=== PATIENT | male | born 1955 | race Caucasian/White ===

== ENCOUNTER 2019-04-22 05:05 | Day surgery (SDC) ==
[2019-04-16 10:32] LABS: HEMATOCRIT 47.7 % (42.0-52.0); HEMOGLOBIN 15.4 g/dL (14.0-18.0); MCH 28.1 PG (27-31); MCHC 32.3 g/dL (33-37); MPV 9.6 FL (7.4-10.4); RBC 5.48 XMIL (4.7-6.1); RDW 14.9 % (11.5-14.5); WBC 5.3 X1000 (4.8-10.8)
[2019-04-16 10:45] LABS: INR 0.99; PROTIME 13.2 Seconds (11.0-16.0); PTT 26.8 Seconds (22.3-41.8)
[2019-04-16 11:49] LABS: AGAP 18; BUN 15 mg/dL (8-22); CALCIUM 10.6 mg/dL (8.8-10.2); CHLORIDE 99 mmol/L (98-107); COSMO 278; CREATININE 0.9 mg/dL (0.7-1.2); ESTIMATED GFR > 60; GLUCOSE 129 mg/dL (70-104); POTASSIUM 4.5 mmol/L (3.5-5.1); SODIUM 138 mmol/L (136-145); TCO2 21 mmol/L (25-35)
--- NOTE | 2019-04-21 17:57 | HISTORY AND PHYSICAL ---
HISTORY OF PRESENT ILLNESS: A 63-year-old male with longstanding history of BPH and intermittent gross hematuria. He has undergone GreenLight transurethral vaporization of the prostate approximately 10 years ago. He reports having hematuria shortly after vaporization. He has been on finasteride for a number of years. He has hesitancy, incomplete emptying, and nocturia. He had elevated postvoid residual and a very large prostate gland on physical examination. He underwent cystoscopy on 03/02/2019, which revealed significant prostatic hypertrophy with minimal TUR defect of the bladder neck. We discussed that he likely has his hematuria because of the significant large prostate. He cannot stop finasteride or hematuria recurs. He was counseled on repeat GreenLight versus standard TURP versus simple prostatectomy and wants to proceed with the latter. PAST MEDICAL HISTORY: Arthritis, BPH, erectile dysfunction, coronary artery disease, hyperlipidemia. PAST SURGICAL HISTORY: Percutaneous coronary intervention, endoscopic kidney stone removal, hernia repair, GreenLight transurethral vaporization of prostate, carpal tunnel release. MEDICATIONS: Amlodipine, insulin, finasteride, Flomax, glimepiride, lisinopril, lovastatin, metformin, metoprolol, sildenafil. ALLERGIES: No known drug allergies. FAMILY HISTORY: Positive for hyperlipidemia, coronary disease, and diabetes. SOCIAL HISTORY: Former smoker, denies alcohol or illicit drug use. PHYSICAL EXAMINATION: GENERAL: No acute distress. HEENT: Normocephalic, atraumatic. CARDIOVASCULAR: Regular rhythm. ABDOMEN: Protuberant, nontender to palpation. Soft. GENITOURINARY: Normal external male genitalia. ASSESSMENT: A 63-year-old male with a very, very large prostate and intermittent gross hematuria who has failed finasteride and Flomax. He has symptoms with hesitancy and weak stream. He desires robotic-assisted laparoscopic simple prostatectomy. We discussed the risks of the procedure including, but not limited to, bleeding, infection, injury to adjacent structures, small risk of mcfp urinary incontinence, small risk of mcfp erectile dysfunction, glucose and syrup weigher complications, such as scarring and need for additional interventions, were explained. He was also educated on retrograde ejaculation as a permanent side effect. He voiced understanding and wants to proceed. PLAN: Robotic-assisted laparoscopic simple prostatectomy. cc: Mauricio Harris MD
[2019-04-22] MEDS ORDERED: LR 1,000 ML ONE ×2 (05:36→06:29)
[2019-04-22] MEDS ORDERED: KEFZOL 1 GM/D5W 2 GM/100 ML IVPB ONE (05:36)
[2019-04-22] MEDS ORDERED: FENTANYL ONE (06:19)
[2019-04-22] MEDS ORDERED: DIPRIVAN 1% ONE (06:19)
[2019-04-22] MEDS ORDERED: VERSED ONE (06:19)
[2019-04-22] MEDS ORDERED: XYLOCAINE-MPF 2% ONE (06:24)
[2019-04-22] MEDS ORDERED: ZEMURON ONE ×3 (06:24→07:29)
[2019-04-22] MEDS ORDERED: ROBINUL ONE (06:24)
[2019-04-22] MEDS ORDERED: SENSORCAINE-MPF 0.5%/EPI 1:200,000 ONE (06:29)
[2019-04-22] MEDS ORDERED: B & O 16A SUPP ONE (06:29)
[2019-04-22] MEDS ORDERED: OFIRMEV 1000 MG/ISOTONIC SOLN 1,000 MG/100 ML BOTTLE ONE (07:26)
[2019-04-22] MEDS ORDERED: ZOFRAN ONE (07:40)
[2019-04-22] MEDS ORDERED: DECADRON ONE (07:40)
[2019-04-22 07:45] LABS: URINE SOURCE CATH
[2019-04-22 07:53] LABS: BILIRUBIN URINE NEGATIVE (NEGATIVE); BLOOD URINE LARGE (NEGATIVE); COLOR YELLOW; GLUCOSE URINE >1000 mg/dL (NEGATIVE); KETONE URINE TRACE mg/dL (NEGATIVE); LEUKOCYTES URINE LARGE (NEGATIVE); NITRITE URINE NEGATIVE (NEGATIVE); PROTEIN URINE 30 mg/dL (NEGATIVE); SP GRAVITY URINE 1.031; TURBIDITY URINE TURBID (CLEAR); UROBILINOGEN URINE NORMAL (NORMAL)
[2019-04-22 07:55] LABS: UR EPITHELIAL CELLS <10 /HPF (<10); URINE BACTERIA NEGATIVE /HPF; URINE RBC TNTC /HPF (<10); URINE WBC TNTC /HPF (<10)
[2019-04-22] MEDS ORDERED: NORCURON ONE (08:11)
[2019-04-22] MEDS ORDERED: NEOSTIGMINE ONE (08:30)
[2019-04-22] MEDS: DILAUDID ONE ×4 (09:39→10:00)
[2019-04-22] MEDS ORDERED: NS 1,000 ML ONE (09:39)
[2019-04-22] MEDS ORDERED: DITROPAN ONE (09:39)
[2019-04-22] MEDS ORDERED: MORPHINE IV PRN (09:44)
[2019-04-22] MEDS ORDERED: DILAUDID IV PRN (09:45)
[2019-04-22] MEDS ORDERED: NORCO-5 PO PRN (09:45)
[2019-04-22] MEDS ORDERED: LABETALOL IV PRN (09:45)
[2019-04-22] MEDS ORDERED: BENADRYL IV PRN (09:45)
[2019-04-22] MEDS ORDERED: PHENERGAN PO PRN (09:45)
[2019-04-22] MEDS ORDERED: PHENERGAN PR PRN (09:45)
[2019-04-22] MEDS ORDERED: ZOFRAN IV PRN (09:45)
[2019-04-22] MEDS ORDERED: NORCO-7.5 PO PRN (09:45)
[2019-04-22] MEDS ORDERED: BENADRYL LIQUID PO PRN (09:45)
[2019-04-22] MEDS ORDERED: SODIUM CHLORIDE 0.9% INJ PRN (09:45)
[2019-04-22] MEDS ORDERED: PHENERGAN IV PRN (09:45)
[2019-04-22] MEDS ORDERED: NORCO-10 ONE (10:19)
[2019-04-22] MEDS: NS 1,000 ML IV SCH ×2 (11:00→22:45)
[2019-04-22] MEDS ORDERED: OFIRMEV 1000 MG/ISOTONIC SOLN 1,000 MG/100 ML BOTTLE IV PRN (14:00)
[2019-04-22] MEDS: NORCO-10 PO PRN (14:50)
[2019-04-22] MEDS: KEFZOL 2 GM/D5W 2 GM/50 ML IVPB IV SCH ×2 (14:50→22:04)
[2019-04-22] MEDS ORDERED: KEFZOL 2 GM/D5W 2 GM/50 ML IVPB IV SCH ×2 (15:00)
[2019-04-22] MEDS: DITROPAN PO PRN (18:50)
[2019-04-22] MEDS: COLACE PO SCH ×2 (19:47→22:04)
[2019-04-22] MEDS: PERIDEX MT SCH ×2 (19:48→22:04)
[2019-04-22] MEDS: MEVACOR PO SCH ×2 (19:48→22:05)
[2019-04-22] MEDS: PATIENT'S OWN MED PO SCH (22:05)
[2019-04-22] MEDS: GLUCOPHAGE PO SCH (22:06)
[2019-04-23] MEDS: NORCO-10 PO PRN (02:05)
[2019-04-23] MEDS: DITROPAN PO PRN (02:05)
[2019-04-23 05:02] LABS: CREATININE BODY FLUID 0.8 mg/dL
[2019-04-23 05:51] VITALS: BP 121/59
[2019-04-23] MEDS: KEFZOL 2 GM/D5W 2 GM/50 ML IVPB IV SCH (06:06)
[2019-04-23 06:36] LABS: HEMATOCRIT 42.5 % (42.0-52.0); HEMOGLOBIN 13.4 g/dL (14.0-18.0); MCH 27.7 PG (27-31); MCHC 31.5 g/dL (33-37); RBC 4.83 XMIL (4.7-6.1); RDW 14.8 % (11.5-14.5); WBC 6.54 X1000 (4.8-10.8)
[2019-04-23 07:23] LABS: AGAP 12; BUN 13 mg/dL (8-22); CALCIUM 8.1 mg/dL (8.8-10.2); CHLORIDE 101 mmol/L (98-107); COSMO 278; CREATININE 0.8 mg/dL (0.7-1.2); ESTIMATED GFR > 60; GLUCOSE 167 mg/dL (70-104); POTASSIUM 4.5 mmol/L (3.5-5.1); SODIUM 137 mmol/L (136-145); TCO2 24 mmol/L (25-35)
[2019-04-23] MEDS ORDERED: MAGNESIUM GLUCONATE PO SCH (09:00)
[2019-04-23] MEDS ORDERED: NON-FORMULARY MED PO SCH (09:00)
[2019-04-23] MEDS ORDERED: VITAMIN D PO SCH (09:00)
[2019-04-23] MEDS ORDERED: VICON-C PO SCH (09:00)
[2019-04-23] MEDS ORDERED: VITAMIN C PO SCH (09:00)
[2019-04-23] MEDS ORDERED: PATIENT'S OWN MED PO SCH (09:00)
[2019-04-23] MEDS ORDERED: CENTRUM TABLET PO SCH (09:00)
[2019-04-23] MEDS: COLACE PO SCH (09:10)
[2019-04-23] MEDS: LOPRESSOR PO SCH ×2 (09:10→09:25)
[2019-04-23] MEDS: GLUCOPHAGE PO SCH (09:10)
[2019-04-23] MEDS: PRINIVIL PO SCH ×2 (09:12→09:25)
[2019-04-23] MEDS: PERIDEX MT SCH (09:14)
[2019-04-23] MEDS: NORVASC PO SCH ×2 (09:14→09:51)
[2019-04-23] MEDS: METAMUCIL POWDER PACKET PO SCH ×2 (09:14→09:26)
[2019-04-23] MEDS: PATIENT'S OWN MED PO SCH (09:16)
--- NOTE | 2019-04-23 11:35 | PROGRESS NOTE ---
DATE: 04/23/2019 SUBJECTIVE: Mr. tSarr reports a good night overnight. He denies significant pain. He has been on continuous irrigation, but it has barely been dripping. He has not had to be irrigated for clot retention. OBJECTIVE: Vital Signs: Temperature 97.7 degrees, pulse 72, blood pressure 121/59. His urine output was recorded, approximately 2 liters. His Wes drain put out 60 mL. General: On physical examination, no acute distress. Abdomen: Soft, nontender, and nondistended. Incisions are clean, dry, and intact. Wes drain has serosanguineous fluid. PERTINENT LABS: Hematocrit 42.5. Creatinine 0.8, NATA creatinine 0.8. ASSESSMENT AND PLAN: A 63-year-old male postoperative day 1, status post laparoscopic lysis of adhesions and robotic-assisted laparoscopic simple prostatectomy who is doing well. His Wes drain will be removed. I educated him on postoperative care. PLAN: 1. Remove NATA drain. 2. Discharge home with Leach catheter. 3. He will go home with prescriptions for [place] 7.5, Ditropan, and Bactrim. 4. I am planning on seeing him the next day for Leach removal. cc: Mauricio Harris MD
--- NOTE | 2019-04-23 15:07 | OPERATIVE NOTE ---
PROCEDURE DATE: 04/22/2019 SURGEON: Dr. Mauricio Harris. PREOPERATIVE DIAGNOSES: 1. Benign prostatic hypertrophy 2. Gross hematuria. 3. History of open abdominal surgery. PROCEDURE: 1. Laparoscopic lysis of adhesions. 2. Robotic-assisted laparoscopic simple prostatectomy. INDICATIONS: A 63-year-old male with long-standing history of BPH who has a very, very large prostate gland. He has failed a GreenLight TUVP that was done approximately 10 years ago. He has had intermittent gross hematuria. He has obstructive symptoms. He had cystoscopy which confirmed a very large gland and presents for intervention. He was counseled on repeated GreenLight TUVP versus standard TURP versus simple prostatectomy. Given the size of his prostate and the urologic failure, he wants to proceed with simple prostatectomy. FINDINGS: Very friable large prostate. Adequate hemostasis at the conclusion of the case. Watertight vesicostomy closure tested with 300 mL of fluid. PROCEDURE: After obtaining informed consent, patient was brought to the operating room. Perioperative antibiotics and general endotracheal and administered. He was placed in lithotomy position, prepped and draped in sterile fashion. An 18-Indonesian Leach catheter was introduced and the bladder was drained. We began by making a small stab incision in his umbilicus with a 15 blade and introduced Veress needle connected to saline-filled syringe. We confirmed positive drop test followed by aspiration of fluid in syringe without evidence of GI contents or blood. We then insufflated his pneumoperitoneal pressure to 15 mmHg. The trocar sites were marked out in a standard prostatectomy fashion. Next, 10 mL of 0.5% plain Marcaine were used for local anesthetic at the trocar sites. Bovie electrocautery was used to incise the skin. Supraumbilical 12 mm trocar was introduced followed by insertion of a robotic camera. Inspection revealed attachments of mesentery and small bowel to anterior abdominal wall. I placed one of the 8 mm trocars and then under direct vision, used scissors to take down the adhesions. Once the were lysed, I placed the rest of the trocars under direct vision. He was positioned in steep Trendelenburg position and the robot was docked. We began by incising lateral to each medial umbilical ligament and gained access to the space of Retzius. Once the bladder was dropped, I cleared off fat from the endopelvic fascia overlying the prostate until the bladder neck was seen. I cleared off some of the fat from the bladder. Once that was done, we made a transverse cystotomy incision approximately 8 cm. Examination of the bladder showed no evidence of lesions. He had fairly friable-appearing prostate gland with significant bilobar hypertrophy and mild protrusion of the median lobe. You really could not see where the previous transurethral vaporization was done. I was able to identify and gen bilateral ureteral orifices. I then used monopolar cautery and scored circumferentially the bladder mucosa. #2 Prolene suture was placed through the lobes of the prostate and put on traction with the fourth arm. Monopolar scissors were then used to make a subcapsular incision posteriorly and slowly adenoma was freed from the capsule circumferentially. I had Leach catheter placed into the bladder throughout the procedure and eventually distally Leach catheter was seen. The adenoma was removed and placed into EndoCatch bag. There appeared to be another lump of adenoma anteriorly which was removed using monopolar cautery and bipolar graspers. The wound was inspected for hemostasis and copiously irrigated. We did not appear to penetrate the capsule. I then used V-Loc suture to reapproximate the bladder neck and the lip of the urethra in a clockwise and counterclockwise fashion. The sutures were then cross tied outside of the prostatic capsule. Upon further examination, again hemostasis was excellent. The ureteral orifices appeared to be uninvolved. We then used 0 Vicryl V-Loc suture to close the bladder in a running fashion incorporating the mucosa and detrusor muscle. I then closed the second layer incorporating some of the detrusor muscle and the overlying fatty tissues in a Lambert fashion. Following that, a 22-Indonesian, 3-way Leach catheter was introduced with 30 mL instilled in the balloon. We irrigated the bladder by instilling 300 mL of sterile fluid and there was no evidence of leakage at the vesicostomy site. The bladder was then left to drainage. We introduced a drain via the fourth arm trocar and secured to the skin with 2-0 nylon suture. Pneumoperitoneum pressure was then decreased and we inspected the entire field, there was no evidence of active bleeding. Following that, the robot was undocked. The wounds were irrigated. Supraumbilical incision was extended, and the prostate was delivered with the EndoCatch bag. A 0 Vicryl suture was used to close the 12 mm paralegal assistant trocar and the fascia. PDS suture was used to close the supraumbilical fascia in a running fashion. The wounds were irrigated again and 4-0 Monocryl sutures were used for subcuticular closure. This was followed by application of Covidien agent. The Wes drain was placed to bulb suction and Leach catheter to gravity drainage as well as continuous bladder irrigation. He was extubated and taken to PACU for further recovery. ESTIMATED BLOOD LOSS: 100 mL. COMPLICATIONS: None. SPECIMENS: Prostate gland. DRAINS: 1. Wes drain. 2. 22-Indonesian, 3-way Leach catheter. DISPOSITION: To PACU and subsequently to the floor with Leach catheter to continuous bladder irrigation. cc: Mauricio Harris MD
[2019-04-24 08:06] LABS: BODY FLUID SOURCE JP DRAIN FLUID
== END 2019-04-23 11:30 | disposition home or self-care (01) ==
LOC: OR 05:05 → 4N 05:05 → OR 04-23 11:30
PROVIDERS: ATTEND Urology